=== PATIENT | male | born 1990 | race Caucasian/White ===

== ENCOUNTER 2016-11-06 15:14 | Emergency (ER) | payer OTHER ==
[2016-11-06 15:32] VITALS: BP 125/74; PULSE 75; RESP 14; O2SAT 94
--- NOTE | 2016-11-06 15:32 | UCPHY ---
H & P Patient Type: Established Chief Complaint Nursing Narrative: laceration right hand from piece of metal at work HPI/ROS: HPI CHIEF COMPLAINT: Right hand laceration HISTORY OF PRESENT ILLNESS: This patient is a 26-year-old male denies any significant medical history except for asthma, presents to the urgent care with a right hand laceration 2 cm in horizontal length across the dorsum of the right hand specifically over the 2nd and 3rd metacarpals. No tendon involvement no arterial injury. 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 Tetanus shot will be updated here in the Urgent Care. Past Medical History: Asthma Past Surgical History: Denies significant surgical history Social History: denies use of drugs, except marijuana, denies use of alcohol tobacco Family History: noncontributory ROS REVIEW OF SYSTEMS: A comprehensive 10 point review of systems is otherwise negative aside from elements mentioned in the history of present illness. Exam Constitutional triage nursing summary reviewed, vital signs reviewed, awake/ alert. Eyes normal conjunctivae and sclera, EOMI, PERRLA. HENT normal inspection, atraumatic, moist mucus membranes, no epistaxis, neck supple/ no meningismus, no raccoon eyes. Respiratory clear to auscultation bilaterally, normal breath sounds, no respiratory distress, no wheezing. Cardiovascular rate normal, regular rhythm, no murmur, no edema, distal pulses normal. Gastrointestinal soft, non-tender, no rebound, no guarding, normal bowel sounds, no distension, no pulsatile mass. Genitourinary no CVA tenderness. Musculoskeletal no midline vertebral tenderness, full range of motion, no calf swelling, no tenderness of extremities, no meningismus, good pulses, neurovascularly intact. Skin right hand: Dorsum of the right hand there is a 2 cm horizontally oriented laceration there is no tendon involvement no arterial vomit, he is neurovascular intact no signs of gross contamination, full range of motion that laceration located to the dorsum side of the hand over the 2nd and 3rd metacarpal pink, warm, & dry, no rash, skin atraumatic. Neurologic awake, alert and oriented x 3, AAOx3, moves all 4 extremities equally, motor intact, sensory intact, CN II-XII intact, normal cerebellar, normal vision, normal speech. Psychiatric normal mood/affect. Heme/Lymph/Immune no lymphadenopathy. Differential Diagnosis: includes but is not limited to in a particular order need for tetanus shot, hand laceration, soft tissue injury, tendon injury, arterial injury Medical Decision Making: This patient will need his hand laceration repaired sterilely. His tetanus shot will need to be updated. Re-evaluation: Laceration Repair Procedure: Verbal Consent was obtained, Under sterile conditions, The patient had lidocaine with epinephrine used approximately 4ccs to local anesthetize the right dorsum hand 2 cm horizontal laceration . The wound was copiously irrigated with sterile fluid, the wound was explored for foreign bodies there were none visualized, the wound was explored with a sterile glove to the base. There are no deep structures involved, including no arterial injury. Two 5.O Prolene interrupted Sutures were placed in this patient's laceration. He had good close approximation of the wound edges. He Tolerated this well. Source: Patient - Personal History Current Tetanus Diphtheria and Acellular Pertussis (TDAP): No - Medical/Surgical History Hx Asthma: Yes Hx Chronic Respiratory Disease: No Hx Diabetes: No Hx Cardiac Disease: No Hx Renal Disease: No Hx Cirrhosis: No Hx Alcoholism: No Hx HIV/AIDS: No Hx Splenectomy or Spleen Trauma: No Other PMH: fx jaw - Family History Significant Family History: No pertinent family hx - Social History Smoking Status: Never smoked Constitutional: Initial Vital Signs Temperature (C) 37.2 C 11/06/16 15:28 Heart Rate 75 11/06/16 15:28 Respiratory Rate 14 11/06/16 15:28 Blood Pressure 125/74 H 11/06/16 15:28 O2 Sat (%) 94 11/06/16 15:28 O2 Delivery Mode Room Air Allergies/Adverse Reactions: No Known Allergies Allergy (Unverified 11/06/16 15:28) Home Medications: Medication Instructions Recorded NK [No Known Home Meds] 11/06/16 Departure - Departure Disposition: Home, Routine, Self-Care Clinical Impression: Laceration Condition: Good Instructions: Laceration (ED), Care For Your Stitches (ED) Additional Instructions: 1. you will need to have her sutures removed in 10 days. please keep the wound clean, covered and protected. He may get warm soapy water on it do not injecting anything into the wound. He will need her sutures removed in 10 days. Monitor for infection. - PQRS PQRS Measurement: n/a
[2016-11-06] MEDS ORDERED: TDAP ADULT 0.5 ML INJ (BOOSTRIX) IM ONE (15:33)
[2016-11-17 14:54] VITALS: TEMP 98.4
== END 2016-11-06 16:06 | disposition home or self-care (01) ==
LOC: CED 15:14
PROC: 0HQFXZZ Repair Right Hand Skin, External Approach (ICD-10-PCS; principal; 2016-11-06)
DX: S61.411A Laceration without foreign body of right hand, initial encounter (principal); W26.8XXA Contact with other sharp object(s), not elsewhere classified, initial encounter; F12.90 Cannabis use, unspecified, uncomplicated; J45.909 Unspecified asthma, uncomplicated
CPT/HCPCS: 99213-PO; G0463-PO